=== PATIENT | male | born 1960 | race Caucasian/White ===

== ENCOUNTER 2024-11-30 10:52 | Emergency (ER) | payer MEDICARE ==
[~2024-11-30] VITALS: Ht 177.8 cm; Wt 95.3 kg
[2024-11-30 11:35] LABS: BASOPHILS % 0.2 % (0.0-1.0); EOSINOPHILS # (AUTO) 0.3 (0.0-0.4); HEMATOCRIT 43.1 % (38.2-49.6); HEMOGLOBIN 15.1 g/dL (14.0-18.0); LYMPHOCYTES # (AUTO) 2.3 (1.0-3.2); LYMPHOCYTES % 26.7 % (18.0-39.1); MEAN CORPUSCULAR HEMOGLOBIN 32.6 pg (28-32); MEAN CORPUSCULAR VOLUME 93.1 fL (81-99); MONOCYTES # (AUTO) 1.2 (0.2-0.8); MONOCYTES % 14.3 % (4.4-11.3); NEUTROPHILS # (AUTO) 4.8 (2.1-6.9); NEUTROPHILS % 55.7 % (38.7-80.0); PLATELET COUNT 172 x10e3/uL (140-360); RED BLOOD COUNT 4.63 x10e6/uL (4.3-5.7); RED CELL DISTRIBUTION WIDTH 11.8 % (11.7-14.4); WHITE BLOOD COUNT 8.55 x10e3/uL (4.8-10.8)
[2024-11-30] MEDS: SODIUM CHLORIDE 0.9% 1000ML 1,000 ML IV ONE (11:36)
[2024-11-30] MEDS: ONDANSETRON HCL INJ 2MG/ML 2ML 2 MG/ML VIAL IV STA (11:36)
[2024-11-30 12:00] LABS: ALBUMIN 3.3 g/dL (3.5-5.0); ALBUMIN/GLOBULIN RATIO 0.9 (0.8-2.0); CALCIUM 8.8 mg/dL (8.4-10.2); CREATININE, SERUM 1.78 mg/dL (0.72-1.25); TOTAL PROTEIN 6.8 g/dL (6.5-8.1)
[2024-11-30 12:28] LABS: CORONAVIRUS COVID-19 AG NEGATIVE (NEGATIVE); INFLUENZA A AG NEGATIVE (NEGATIVE); INFLUENZA B AG NEGATIVE (NEGATIVE)
[2024-11-30 13:42] LABS: BACTERIA,URINE MODERATE /HPF; BILIRUBIN,URINE NEGATIVE (NEGATIVE); CLARITY,URINE TURBID (CLEAR); COLOR,URINE YELLOW (YELLOW); EPITHELIAL CELLS,URINE RARE /LPF; GLUCOSE, URINE 500 (NEGATIVE); KETONES,URINE TRACE (NEGATIVE); LEUKOCYTE ESTERASE ,URINE TRACE (NEGATIVE); NITRITE,URINE POSITIVE (NEGATIVE); PH,URINE 5.5 (5 - 7); PROTEIN,URINE DIPSTICK 2+ (NEGATIVE); URINE UROBILINOGEN 0.2 mg/dL (0.2 - 1); WBC,URINE (MAN) >50 /HPF (0-5)
[2024-11-30] MEDS ORDERED: CEFUROXIME250 MG PO (14:08)
[2024-11-30 14:44] VITALS: PULSE 71; RESP 16; TEMP 97.9; O2SAT 99
== END 2024-11-30 14:47 | disposition home or self-care (01) ==
LOC: ER 11:10
DX: R30.0 Dysuria (principal); N39.0 Urinary tract infection, site not specified; R31.9 Hematuria, unspecified; R11.2 Nausea with vomiting, unspecified; Z11.52 Encounter for screening for COVID-19
CPT/HCPCS: 36415; 80053; 81001; 83690; 85025; 87086; 87186; 87428; 99284; J0696; J2405; J7030